=== PATIENT | female | born 1990 | race Caucasian/White ===

== ENCOUNTER 2017-07-06 15:21 | Emergency (ER) | payer SELFPAY, OTHER | END 2017-07-06 16:15 | disposition left against medical advice (07) | LOC: E/R 15:21 | DX: Z53.21 Procedure and treatment not carried out due to patient leaving prior to being seen by health care provider (principal) ==

== ENCOUNTER 2017-09-27 12:45 | Emergency (ER) | payer OTHER | END 2017-09-27 15:43 | disposition home or self-care (01) | LOC: FTE 12:45 | DX: E04.1 Nontoxic single thyroid nodule (principal) | CPT/HCPCS: 76536; 99284-25 ==

== ENCOUNTER 2018-02-20 07:22 | Inpatient (IN) | payer OTHER ==
[~2018-02-20 07:22] MED LIST: CEFAZOLIN 2 GM/50 ML (PMX) 50 ML IVPB; NALOXONE (0.4 MG/ML) INJ
[2018-02-20] MEDS ORDERED: THROMBIN 5000 UNIT VIAL (08:44)
[2018-02-20] MEDS ORDERED: NEOSTIGMINE 3 MG/3 ML SYRINGE (08:55)
[2018-02-20] MEDS ORDERED: MIDAZOLAM 1 MG/ML 2 ML INJ (08:55)
[2018-02-20] MEDS ORDERED: CEFAZOLIN 1 GM INJ (08:55)
[2018-02-20] MEDS ORDERED: ROCURONIUM 50 MG INJ (08:55)
[2018-02-20] MEDS ORDERED: ONDANSETRON 4 MG INJ (08:55)
[2018-02-20] MEDS ORDERED: PROPOFOL 20 ML ×2 (08:55→09:46)
[2018-02-20] MEDS ORDERED: METOCLOPRAMIDE 10 MG INJ (08:56)
[2018-02-20] MEDS ORDERED: HYDROmorphONE 1 MG/5 ML IV SYRINGE IV (09:00)
[2018-02-20] MEDS ORDERED: DIPHENHYDRAMINE 50 MG INJ IV (09:00)
[2018-02-20] MEDS ORDERED: MEPERIDINE 25 MG INJ IV (09:00)
[2018-02-20] MEDS ORDERED: FENTAnyl 50 MCG/ML VIAL (09:20)
[2018-02-20] MEDS ORDERED: SUCCINYLCHOLINE CHLORIDE 100 MG/5 ML SYG IV (09:25)
[2018-02-20] MEDS ORDERED: EPHEDrine SULFATE 50 MG/5 ML SYG (09:25)
[2018-02-20] MEDS ORDERED: HYDROmorphONE 2 MG/ML SYG (09:36)
[2018-02-20] MEDS ORDERED: ACETAMINOPHEN 1000MG/100ML IV 100 ML IVPB (11:00)
[2018-02-20] MEDS: HYDROmorphONE 1 MG/5 ML IV SYRINGE IV ×2 (11:13→11:32)
[2018-02-20] MEDS: ONDANSETRON 4 MG INJ IV ×2 (11:13→15:44)
[2018-02-20] MEDS: SOD CHLORIDE 0.9% 1,000 ML IV (11:22)
[2018-02-20] MEDS: D5W-0.45 NACL + KCL 20 MEQ 1,000 ML IV ×3 (13:18→23:18)
[2018-02-20] MEDS: morphine 2 MG INJ IV (18:10)
[2018-02-20] MEDS ORDERED: HYDROCODONE/APAP (5/325) TAB PO (23:30)
[2018-02-21 01:26] LABS: CALCIUM 9.4 mg/dl (8.4-10.2)
[2018-02-21 05:05] LABS: ADD MAN DIFF? NO; BASOPHILS % 0.4 % (0.0-2.0); EOSINOPHILS # 0.1 10^3/ul (0.0-0.5); EOSINOPHILS % 1.5 % (0.0-7.0); HEMATOCRIT 35.2 % (37.0-47.0); HEMOGLOBIN 11.6 g/dl (12.0-16.0); LYMPHOCYTES % 20.7 % (15.0-51.0); MEAN CORPUSCULAR HEMOGLOBIN 29.2 pg (29.0-33.0); MEAN CORPUSCULAR VOLUME 88.7 fl (82.0-101.0); MEAN PLATELET VOLUME 9.4 fl (7.4-10.4); MONOCYTE # 0.7 10^3/ul (0.3-0.9); MONOCYTES % 7.2 % (0.0-11.0); NEUTROPHIL # 6.7 10^3/ul (1.6-7.5); NEUTROPHILS % 69.8 % (39.0-77.0); PLATELET COUNT 263 10^3/UL (140-415); RED BLOOD COUNT 3.97 10^6/ul (4.20-5.40); RED CELL DISTRIBUTION WIDTH 12.3 % (11.5-14.5)
[2018-02-21 05:05] LABS: WHITE BLOOD COUNT 9.6 10^3/ul (4.8-10.8)
[2018-02-21 05:28] LABS: ANION GAP 8 (5-13); BLOOD UREA NITROGEN 4 mg/dl (7-20); CALCIUM 8.2 mg/dl (8.4-10.2); CARBON DIOXIDE 27 mmol/L (21-31); CHLORIDE 105 mmol/L (97-110); CREATININE 0.58 mg/dl (0.44-1.00); Estimated GFR > 60 mL/min (>60); GLUCOSE 112 mg/dl (70-220); POTASSIUM 3.8 mmol/L (3.5-5.1); SODIUM 140 mmol/L (135-144)
[2018-02-21 05:32] LABS: CALCIUM 8.3 mg/dl (8.4-10.2)
[2018-02-21] MEDS: D5W-0.45 NACL + KCL 20 MEQ 1,000 ML IV ×2 (07:29→11:00)
== END 2018-02-21 15:48 | disposition home or self-care (01) | DRG 627 ==
LOC: REC 07:22 → MS1 14:16
PROVIDERS: Surgery Surgical Oncology
PROC: 0GBG0ZZ Excision of Left Thyroid Gland Lobe, Open Approach (ICD-10-PCS; principal; 2018-02-20 09:00)
DX: E04.1 Nontoxic single thyroid nodule (principal)
CPT/HCPCS: 80048; 82310; 85025; 88307; 88331; 90686

== ENCOUNTER 2018-05-15 08:37 | Inpatient (IN) | payer OTHER ==
[2018-05-15] MEDS: CEFAZOLIN 2 GM/50 ML (PMX) 50 ML IVPB (09:00)
[2018-05-15] MEDS: SOD CHLORIDE 0.9% 1,000 ML IV (10:26)
[2018-05-15 10:28] LABS: ADD MAN DIFF? NO
[2018-05-15 10:34] LABS: BASOPHIL # 0.1 10^3/ul (0.0-0.1); BASOPHILS % 0.8 % (0.0-2.0); EOSINOPHILS # 0.1 10^3/ul (0.0-0.5); EOSINOPHILS % 1.7 % (0.0-7.0); HEMATOCRIT 44.1 % (37.0-47.0); HEMOGLOBIN 14.3 g/dl (12.0-16.0); LYMPHOCYTES % 29.8 % (15.0-51.0); MEAN CORPUSCULAR HEMOGLOBIN 28.7 pg (29.0-33.0); MEAN CORPUSCULAR HGB CONC 32.4 g/dl (32.0-37.0); MEAN CORPUSCULAR VOLUME 88.6 fl (82.0-101.0); MEAN PLATELET VOLUME 9.5 fl (7.4-10.4); MONOCYTE # 0.4 10^3/ul (0.3-0.9); MONOCYTES % 5.4 % (0.0-11.0); NEUTROPHIL # 4.1 10^3/ul (1.6-7.5); NEUTROPHILS % 61.8 % (39.0-77.0); PLATELET COUNT 286 10^3/UL (140-415); RED BLOOD COUNT 4.98 10^6/ul (4.20-5.40)
[2018-05-15 10:34] LABS: WHITE BLOOD COUNT 6.6 10^3/ul (4.8-10.8)
[2018-05-15] MEDS ORDERED: ROCURONIUM 50 MG INJ (10:40)
[2018-05-15] MEDS ORDERED: LIDOCAINE 2% (SDV) 5 ML INJ (10:40)
[2018-05-15] MEDS ORDERED: PROPOFOL 20 ML (10:40)
[2018-05-15] MEDS ORDERED: CEFAZOLIN 1 GM INJ (10:42)
[2018-05-15] MEDS ORDERED: FENTAnyl 50 MCG/ML VIAL (10:42)
[2018-05-15] MEDS ORDERED: MIDAZOLAM 1 MG/ML 2 ML INJ (10:43)
[2018-05-15 10:53] LABS: INR 0.89; PARTIAL THROMBOPLASTIN TIME 32.3 Sec (23.0-35.0); PROTIME 12.1 Sec (11.9-14.9); PT RATIO 0.9
[2018-05-15 11:00] LABS: ALANINE AMINOTRANSFERASE 14 IU/L (13-69); ALBUMIN 4.8 g/dl (3.3-4.9); ALKALINE PHOSPHATASE 74 IU/L (42-121); ANION GAP 8 (5-13); ASPARTATE AMINO TRANSFERASE 25 IU/L (15-46); BILIRUBIN,INDIRECT 0.4 mg/dl (0-1.1); BILIRUBIN,TOTAL 0.4 mg/dl (0.2-1.3); BLOOD UREA NITROGEN 9 mg/dl (7-20); CALCIUM 9.7 mg/dl (8.4-10.2); CARBON DIOXIDE 29 mmol/L (21-31); CHLORIDE 104 mmol/L (97-110); CREATININE 0.65 mg/dl (0.44-1.00); Estimated GFR > 60 mL/min (>60); GLUCOSE 100 mg/dl (70-220); POTASSIUM 4.2 mmol/L (3.5-5.1); SODIUM 141 mmol/L (135-144); TOTAL PROTEIN 8.8 g/dl (6.1-8.1)
[2018-05-15] MEDS ORDERED: FAMOTIDINE 20 MG INJ (11:55)
[2018-05-15] MEDS ORDERED: METOCLOPRAMIDE 10 MG INJ (11:55)
[2018-05-15] MEDS ORDERED: DEXAMETHASONE 4 MG/ML 5 ML INJ (11:55)
[2018-05-15] MEDS ORDERED: PHENYLephrine (100 MCG/ML) 5ML SYG ×2 (11:55→12:38)
[2018-05-15] MEDS ORDERED: ONDANSETRON 4 MG INJ (11:55)
[2018-05-15] MEDS ORDERED: NEOSTIGMINE 3 MG/3 ML SYRINGE (12:48)
[2018-05-15] MEDS ORDERED: GLYCOPYRROLATE 0.4 MG INJ (12:48)
[2018-05-15] MEDS ORDERED: PROCHLORPERAZINE 10 MG INJ IV (13:00)
[2018-05-15] MEDS ORDERED: OXYCODONE/ACETAMINOPHEN (5/325) TAB PO ×2 (13:00)
[2018-05-15] MEDS ORDERED: HYDROmorphONE 1 MG/5 ML IV SYRINGE IV (13:00)
[2018-05-15] MEDS ORDERED: MEPERIDINE 25 MG INJ IV (13:00)
[2018-05-15] MEDS: ONDANSETRON 4 MG INJ IV (13:26)
[2018-05-15] MEDS: HYDROmorphONE 1 MG/5 ML IV SYRINGE IV ×3 (13:26→13:41)
[2018-05-15] MEDS ORDERED: morphine 2 MG INJ IV (13:30)
[2018-05-15] MEDS ORDERED: ONDANSETRON 4 MG INJ IV (13:30)
[2018-05-15] MEDS: D5W-0.45 NACL + KCL 20 MEQ 1,000 ML IV ×2 (18:43→21:18)
[2018-05-15 19:35] LABS: CALCIUM 8.8 mg/dl (8.4-10.2)
[2018-05-15] MEDS: ACETAMINOPHEN 1000MG/100ML IV 100 ML IVPB (20:16)
[2018-05-15] MEDS ORDERED: HYDROCODONE/APAP (5/325) TAB PO (22:00)
[2018-05-16 01:01] LABS: CALCIUM 8.9 mg/dl (8.4-10.2)
[2018-05-16] MEDS: D5W-0.45 NACL + KCL 20 MEQ 1,000 ML IV ×2 (04:48→13:18)
[2018-05-16 05:52] LABS: CALCIUM 9.1 mg/dl (8.4-10.2)
[2018-05-16] MEDS: ACETAMINOPHEN 1000MG/100ML IV 100 ML IVPB (11:34)
[2018-05-16 15:17] LABS: CALCIUM 9.3 mg/dl (8.4-10.2)
== END 2018-05-16 17:15 | disposition home or self-care (01) | DRG 627 ==
LOC: REC 08:37 → MS1 14:56
PROC: 0GTH0ZZ Resection of Right Thyroid Gland Lobe, Open Approach (ICD-10-PCS; principal; 2018-05-15 11:00)
DX: C73 Malignant neoplasm of thyroid gland (principal)
CPT/HCPCS: 80053; 82310; 84703; 85025; 85610; 85730; 88307; 90686